=== PATIENT | female | born 1955 | race Caucasian/White ===

== ENCOUNTER 2018-08-16 13:50 | Emergency (ER) | payer SELFPAY ==
[2018-08-16 13:56] VITALS: BP 152/82; PULSE 94; TEMP 98.4; BMI 21.4
[2018-08-16] MEDS ORDERED: ALBUTEROL SO4 2.5/IPRATROPIUM 0.5 INH SOL 3 ML VIAL.NEB. NEB ONE ×2 (14:57→15:25)
[2018-08-16] MEDS ORDERED: DEXAMETHASONE LIQUID 0.5 MG/5 ML 240 ML BULK BOTTLE PO ONE (14:57)
--- NOTE | 2018-08-16 14:59 | PDOC ---
History of Present Illness - General Chief Complaint: Cold Symptoms Stated Complaint: SEVERE COUGH Time Seen by Provider: 08/16/18 14:02 History Source: Patient Exam Limitations: Language Barrier ([employer] used [id number]) Past History - Past Medical History Allergies/Adverse Reactions: Allergies Allergy/AdvReac Type Severity Reaction Status Date / Time No Known Allergies Allergy Verified 10/30/14 14:26 Home Medications: Ambulatory Orders Omeprazole [Prilosec (RX)] 40 mg PO DAILY 09/30/13 Triamterene/Hydrochlorothiazid [Dyazide 37.5-25 Capsule] 1 each PO DAILY Alprazolam 1 mg PO TID 10/14/14 Clonazepam [Klonopin] 0.5 mg PO HS 10/14/14 Enalapril Maleate [Vasotec -] 10 mg PO DAILY 10/14/14 Phenylephrine HCl/[place] Butter [Preparation H Suppository] 1 supp.rect [place] DAILY 10/14/14 Zolpidem Tartrate [Ambien] 5 mg PO HS 10/14/14 Ondansetron HCl [Zofran] 4 mg PO BID PRN #10 tablet 10/30/14 Albuterol 0.083% Nebulizer Yelitza [Ventolin 0.083% Nebulizer Soln -] 1 neb NEB Q6H #20 vial 08/16/18 Chlorpheniramine/Dextromethorp [Coricidin Hbp Cough & Cold Tab] 1 each PO TID # 15 tablet 08/16/18 predniSONE [Deltasone -] 40 mg PO DAILY #8 tablet 08/16/18 Asthma: Yes COPD: No Diabetes: Yes GI Disorders: Yes (GERD) Hypercholesterolemia: Yes Psychiatric Problems: Yes (anxiety) - Immunization History Immunization Up to Date: No - Suicide/Smoking/Psychosocial Hx Smoking History: Never smoked Have you smoked in the past 12 months: No Information on smoking cessation initiated: No Hx Alcohol Use: No Drug/Substance Use Hx: No Substance Use Type: None Hx Substance Use Treatment: No *Physical Exam - Vital Signs Last Vital Signs Temp Pulse Resp BP Pulse Ox 98.4 F 94 H 16 152/82 97 08/16/18 13:52 08/16/18 13:52 08/16/18 13:52 08/16/18 13:52 08/16/18 13:52 *DC/Admit/Observation/Transfer Diagnosis at time of Disposition: Bronchitis - Discharge Dispostion Disposition: HOME Condition at time of disposition: Stable Decision to Admit order: No - Prescriptions Prescriptions: Albuterol 0.083% Nebulizer Yelitza [Ventolin 0.083% Nebulizer Soln -] 1 neb NEB Q6H #20 vial Chlorpheniramine/Dextromethorp [Coricidin Hbp Cough & Cold Tab] 1 each PO TID # 15 tablet predniSONE [Deltasone -] 40 mg PO DAILY #8 tablet - Referrals Referrals: Crispin Fallon MD [Staff Physician] - - Patient Instructions Printed Discharge Instructions: DI for Viral Upper Respiratory Infection -- Adult Additional Instructions: You have bronchitis Please use the inhaler every 4 hours for the next week to help with your cough. Continue taking the prednisone daily for the next 4 days. You may take the the Cordicin for your cough Please follow up with your primary care doctor in 1 week if your symptoms are not improving. Return to the emergency department if you have fevers, chills, worsening cough, chest pain, worsening shortness of breath or if you have any changes in your symptoms. Tienes bronquitis Por favor, utilice el inhalador cada 4 horas para la prxima semana para ayudar con la tos. Contine tomando la prednisona diariamente ruchi los prximos 4 jacobs. Usted puede rony la Cordicin para marquis tos Por favor, felicia un seguimiento con marquis mdico de atencin primaria en 1 semana si arlen sntomas no mejoran. Regrese al Departamento de urgencias si tiene fiebre, escalofros, empeoramiento de la tos, dolor torcico, empeoramiento de la dificultad para respirar o si tiene algn cambio en los sntomas. Print Language: ICELANDIC - Post Discharge Activity
[2018-08-16] MEDS ORDERED: DEXAMETHASONE SOD PHOSPHATE 10 MG/1 ML VIAL ONE (15:25)
== END 2018-08-16 16:04 | disposition home or self-care (01) ==
LOC: JERFT 13:50
PROC: 3E0F7GC Introduction of Other Therapeutic Substance into Respiratory Tract, Via Natural or Artificial Opening (ICD-10-PCS; principal; 2018-08-16)
DX: J40 Bronchitis, not specified as acute or chronic (principal); J45.909 Unspecified asthma, uncomplicated; E11.9 Type 2 diabetes mellitus without complications; K21.9 Gastro-esophageal reflux disease without esophagitis; F41.9 Anxiety disorder, unspecified
CPT/HCPCS: 71046-TC-FY; 99281-25

== ENCOUNTER 2019-03-14 22:04 | Observation (INO) | payer OTHER ==
--- NOTE | 2019-03-14 22:26 | PDOC ---
Attending Attestation - Resident Resident Name: Riki Camilo - ED Attending Attestation I have performed the following: I have examined & evaluated the patient, The case was reviewed & discussed with the resident, I agree w/resident's findings & plan - HPI HPI: 03/15/19 01:28 Pt comes with hypotension and syncope today. Pt states that she was drinking shots of alcohol. N/V Pt had UTOX + in the ER. - Physicial Exam PE: 03/15/19 01:29 A+Ox3 Afebrile Heart and lungs clear Abd soft NT ND No flank pain No rashes. Pt smells of alcohol on breath - Medical Decision Making 03/15/19 01:11 Patient Name: VIKI RODRIGUEZ THIS IS A PRELIMINARY REPORT FROM [facility] DATE OF SERVICE: 2019-03-15 00:10:34 IMAGES: [id number] EXAM: CT HEAD WITHOUT CONTRAST No acute hemorrhage, mass or acute territorial infarct. Age-related involutional changes and minimal chronic small vessel ischemic changes. Mucoperiosteal thickening paranasal sinuses. Small fluid right maxillary sinus. Visualized mastoid air cells clear. 03/15/19 01:23 Patient Name: VIKI RODRIGUEZ THIS IS A PRELIMINARY REPORT FROM [facility] DATE OF SERVICE: 2019-03-15 00:17:09 IMAGES: [id number] EXAM: CT ABDOMEN AND PELVIS WITHOUT CONTRAST No nephrolithiasis, ureterolithiasis or obstructive uropathy. No bladder calculi. Unremarkable spleen, stomach, pancreas and gallbladder. No bowel obstruction or inflammation. Diverticulosis colon. No free fluid or free air. No evidence of appendicitis. Hepatomegaly and steatosis. Hysterectomy 03/15/19 01:59 +cocaine and +marijuana 03/15/19 03:05 Pt will be admitted for syncope. Heart Score/ECG Review - ECG Intrepretation Rhythm: Regular Rhythm - [place]: Normal - P and IA Delta Wave(s) Present: No WPW: No - QRS Poor R Wave Progression: No Q Wave Present: No - ST and T Early Repolarization: No Non Specific ST-T Wave changes: No Flattened T Waves: No - ECG Impressions Normal ECG: Yes Non-specific ST Elevation: No Ischemic Changes: No
[2019-03-14] MEDS ORDERED: ONDANSETRON 4 MG/2 ML VIAL IVPUSH ONE (22:35)
[2019-03-14] MEDS ORDERED: FAMOTIDINE 20 MG/50 ML IVPB 20 MG/50 ML MG IVPB ONE ×2 (22:35→23:18)
[2019-03-14] MEDS ORDERED: SODIUM CHLORIDE 0.9% 1000 ML INFUS.BAG IV ONE (22:35)
[2019-03-14] MEDS ORDERED: ONDANSETRON 4 MG/2 ML VIAL ONE (22:39)
--- NOTE | 2019-03-14 22:51 | PDOC ---
History of Present Illness - General Chief Complaint: Blood Pressure Problem Stated Complaint: VOMITING Time Seen by Provider: 03/14/19 22:25 Past History - Past Medical History Allergies/Adverse Reactions: Allergies Allergy/AdvReac Type Severity Reaction Status Date / Time loratadine [From Claritin] Allergy Verified 03/14/19 22:37 Home Medications: Ambulatory Orders Omeprazole [Prilosec (RX)] 40 mg PO DAILY 09/30/13 Triamterene/Hydrochlorothiazid [Dyazide 37.5-25 Capsule] 1 each PO DAILY Alprazolam 1 mg PO TID 10/14/14 Clonazepam [Klonopin] 0.5 mg PO HS 10/14/14 Enalapril Maleate [Vasotec -] 10 mg PO DAILY 10/14/14 Phenylephrine HCl/[place] Butter [Preparation H Suppository] 1 supp.rect IN DAILY 10/14/14 Zolpidem Tartrate [Ambien] 5 mg PO HS 10/14/14 Ondansetron HCl [Zofran] 4 mg PO BID PRN #10 tablet 10/30/14 Albuterol 0.083% Nebulizer Yelitza [Ventolin 0.083% Nebulizer Soln -] 1 [facility] Q6H #20 vial 08/16/18 Albuterol 0.083% Nebulizer Yelitza [Ventolin 0.083% Nebulizer Soln -] 1 [facility] Q6H #20 vial 08/16/18 Chlorpheniramine/Dextromethorp [Coricidin Hbp Cough & Cold Tab] 1 each PO TID # 15 tablet 08/16/18 Chlorpheniramine/Dextromethorp [Coricidin Hbp Cough & Cold Tab] 1 each PO TID # 15 tablet 08/16/18 predniSONE [Deltasone -] 40 mg PO DAILY #8 tablet 08/16/18 predniSONE [Deltasone -] 40 mg PO DAILY #8 tablet 08/16/18 Asthma: Yes COPD: No Diabetes: Yes GI Disorders: Yes (GERD) Hypercholesterolemia: Yes Psychiatric Problems: Yes (anxiety) - Immunization History Immunization Up to Date: No - Psycho Social/Smoking Cessation Hx Smoking History: Never smoked Have you smoked in the past 12 months: No Hx Alcohol Use: No Drug/Substance Use Hx: No Substance Use Type: None Hx Substance Use Treatment: No *Physical Exam - Vital Signs Last Vital Signs Temp Pulse Resp BP Pulse Ox 98.3 F 88 16 67/40 L 94 L 03/14/19 22:10 03/14/19 22:10 03/14/19 22:10 03/14/19 22:10 03/14/19 22:10 ED Treatment Course - LABORATORY CBC & Chemistry Diagram: 03/15/19 06:02 03/15/19 06:02 Medical Decision Making - Medical Decision Making 03/14/19 23:18 HPI: 63yo F hx DM, HTN, HLD, gastritis, hx alcohol abuse (sober x1yr until tonight), depression and anxiety (with hx psych hospitalizations) BIBA for witnessed syncopal episode with N/V without head injury or other injuries at 2129 tonight s/p multiple shots of Patron tequila and a beer. Pt states she was in [place] yesterday. Today was tired all day. Noticed glucose 260 this afternoon so took 1 extra "sugar pill". Otherwise takes her medications on and off, including clonazepam, losartan, 2 diabetes pills, and prozac. Pt was out with friends/ family this evening and appeared fine by the family until 2129 when pt sudddenly said didn't feel well and sat down and turned pale. Family tried to help her stand up and she became nauseated and had NBNB emesis x3 and fainted/ collapsed into their arms, +LOC x1min. Denies hx syncope or similar sx. Denies head injury or other injuries; family states caught her and laid her down. Called EMS. Per EMS, pt's BP was too faint to obtain. Pt endorses nausea and LLQ intermittent abdominal pain of unknown type without provoking or palliating factors since episode, similar to chronic LLQ pain worked up by Dr Herron which pt believes is due to gastritis. Hx abdominal surgeries removing uterus, ovaries , and part of bladder. Endorses hemorrhoids and chronic constipation, LBM today. Endorses urinary urgency xfew days. Endorse chronic mid-back pain, unchanged today. Denies fever, chills, numbness/tingling, weakness, shortness of breath, cough, chest pain, palpitations, leg swelling, calf tenderness, hx DVT/PE, recent surgery or travel, sick contacts, blood in stool, diarrhea, dysuria, hematuria, confusion, incontinence, seizure-like movements, tongue biting. Denies illicit drug use or smoking. Denies SI/HI/AVH or taking too many medications. PCP - [facility] ROS: Constitutional: Positive for fatigue. Negative for chills, fever, diaphoresis. HENT: Negative for sore throat, rhinorrhea, congestion. Eyes: Positive for blurry vision. Respiratory: Negative for shortness of breath, cough, and wheezing. Cardiovascular: Negative for chest pain, palpitations, and leg swelling. Gastrointestinal: Positive for abdominal pain, hemorrhoids, constipation, nausea , vomiting. Negative for blood in stool, diarrhea. Genitourinary: Positive for urgency. Negative for dysuria, flank pain, and hematuria. Musculoskeletal: Positive for chronic mid back pain. Negative for myalgias and neck pain. Skin: Negative for rash. Neurological: Positive for dizziness, syncope, and headache. Negative for vertigo, weakness, numbness. Psychiatric/Behavioral: Negative for behavioral problems and confusion. PE: Gen: Alert, NAD, uncomfortable and anxious-appearing, hypotensive, pale, actively vomiting HEENT: PERRL, EOMI, MMM, NCAT. No conjunctival pallor. Sclera are non-icteric. CV: Regular rate and rhythm. No murmurs, rubs, or gallops. PULM: No resp distress. CTAB, no wheezes, rales, or rhonchi. ABD: +mild LLQ TTP, soft, ND, no rebound tenderness or guarding, no CVA tenderness. BACK: No TTP of c/t/l-spine. No step-offs or deformities. MSK: No bony deformities. 2+ pulses in all extremities. NEURO: AAOx3. PERRL. CN 2-12 intact. 5/5 strength in all extremities. Sensation to light touch intact in all extremities. EXTREMITIES: No cyanosis. No clubbing. No edema. No calf tenderness. PSYCH: Normal mood and thought pattern. SKIN: Warm and dry. Pale. Normal capillary refill. No rashes. No jaundice. MDM: 63yo F hx DM, HTN, HLD, gastritis, hx alcohol abuse (sober x1yr until tonight), depression and anxiety (with hx psych hospitalizations) BIBA for witnessed syncopal episode with N/V without head injury or other injuries at 2130 tonight s/p multiple shots of Patron tequila and a beer. Upon presentation, VSS except for hypotensive 66/40, improving gradually with fluids, neurologically intact, no e/o trauma, +LLQ TTP. 176 POC glucose. Syncope most likely orthostatic or vasovagal 2/2 dehydration, vomiting, alcohol use, and anxiety. Also consider and eval for SAH, anemia, metabolic derangement , DKA/hypoglycemia, intoxication, infection (PNA, UTI, GI), cardiac pathology such as ACS/AR or arrhythmia, medication overdose. Abdominal pain most likely gastritis, but due to LLQ pain and mild TTP, also obtain labs and CTAP to eval for pancreatitis, cholelithiasis/cystitis, diverticulitis, colitis, or other GI pathology. No s/s of seizure. No e/o head injury or other injuries. -BP control: IVF -Zofran, Pepcid -CBC,CMP,Lipase,Cardiac profile,Mg,Lact,UA/UC/UDS,Salicylate,Acetaminophen, Alcohol -EKG -CTH -CTAP w/IV contrast -CXR -Dispo: pending w/u 03/14/19 23:52 Pt feeling better s/p 2L NS, normotensive, VSS, still mild TTP LLQ 03/14/19 23:57 Labs reviewed. Of note, leukocytosis, SHARRON, lact 3.4. EKG reviewed: NSR, 86bpm, normal axis, QTc 493ms, no e/o acute ischemia 03/15/19 01:30 CTH reviewed: no acute pathology CTAP reviewed: no acute pathology. Notable for diverticulosis, hepatic steatosis , and hepatomegaly. CXR reviewed: no acute pathology Of note, pt's family now informs us that pt was biting her tongue while passed out and family member had to shove knuckle into clenched teeth to open her mouth and stop her from biting tongue. Denies incontinence or seizure-like movements. Denies hx seizures. UDS positive for cocaine and MJ. Will admit tele/obs for syncope vs seizure. Microblog sent to admitting. 03/15/19 01:44 Signed out to admitting team. Discharge - Discharge Information Problems reviewed: Yes Clinical Impression/Diagnosis: Syncope, Abdominal pain Condition: Improved - Admission Yes - Follow up/Referral - Patient Discharge Instructions - Post Discharge Activity
[2019-03-14] MEDS ORDERED: SODIUM CHLORIDE 0.9% 500 ML INFUS.BAG IV ONE (22:53)
[2019-03-14 23:32] LABS: BASO % 0.5 % (0-2.0); EOS % 2.1 % (0-4.5); HEMATOCRIT 39.5 % (32.4-45.2); HEMOGLOBIN 13.1 GM/dL (10.7-15.3); LYMPH % 27.5 % (8-40); MCH 29.8 pg (25.7-33.7); MCHC 33.2 g/dl (32.0-36.0); MEAN CELL VOLUME 89.7 fl (80-96); MEAN PLT VOLUME 9.8 fl (7.5-11.1); MONO % 6.7 % (3.8-10.2); NEUT % 63.2 % (42.8-82.8); PLATELET COUNT 299 K/MM3 (134-434); RBC 4.41 M/mm3 (3.60-5.2); RDW 12.4 % (11.6-15.6); WHITE BLOOD COUNT 15.3 K/mm3 (4.0-10.0)
[2019-03-14 23:45] LABS: INR 1.07 (0.83-1.09); PROTHROMBIN TIME (PATIENT) 12.6 SEC (9.7-13.0)
[2019-03-14 23:57] LABS: ALBUMIN 3.4 g/dl (3.4-5.0); BILIRUBIN,TOTAL 0.2 mg/dL (0.2-1); BLOOD UREA NITROGEN 18.5 mg/dL (7-18); CALCIUM 8.8 mg/dL (8.5-10.1); CREATININE 1.7 mg/dL (0.55-1.3); POTASSIUM 3.9 mmol/L (3.5-5.1); TOT PROT 6.6 g/dl (6.4-8.2)
[2019-03-15 00:59] LABS: URINE APPEARANCE CLEAR; URINE BILIRUBIN NEGATIVE (NEGATIVE); URINE COLOR YELLOW; URINE GLUCOSE (UA) 3+ (NEGATIVE); URINE KETONE NEGATIVE (NEGATIVE); URINE LEUK ESTERASE NEGATIVE (NEGATIVE); URINE NITRITE NEGATIVE (NEGATIVE); URINE PROTEIN NEGATIVE (NEGATIVE); URINE UROBILINOGEN 0.2 mg/dL (0.2-1.0)
[2019-03-15 01:16] LABS: METHADONE, UR NEGATIVE ng/ml (CUTOFF=300); OPIATES, URI NEGATIVE ng/ml (CUTOFF=300); PHENCYCLIDINE,URINE NEGATIVE ng/ml (CUTOFF=25); URINE AMPHETAMINES NEGATIVE ng/ml (CUTOFF=500); URINE BARBITURATES NEGATIVE ng/ml (CUTOFF=200); URINE BENZODIAZEPINES NEGATIVE ng/ml (CUTOFF=200)
[2019-03-15 01:20] LABS: COCAINE, UR POSITIVE ng/ml (CUTOFF=300)
--- NOTE | 2019-03-15 01:47 | PN ---
Teaching Attending Note Name of Resident: Anoop Dumas ATTENDING PHYSICIAN STATEMENT I saw and evaluated the patient. I reviewed the resident's note and discussed the case with the resident. I agree with the resident's findings and plan as documented. SUBJECTIVE: 63-year-old woman with a history of diabetes, hypertension, dyslipidemia, gastritis, polysubstance abuse, depression, anxietymultiple psych hospitalizations for psych related illnesses, brought in by ambulance after witnessed syncope episode with nausea and vomiting. Syncope episode occurred about 2130 on 03/14/2019. Patient was reported to have taken multiple shots of liquor and has drank beer. She was found to be very hypotensive in the field with reported blood pressure of 66/40. There were no focal neurological deficits which were described. POC glucose was reported to be on the high side. It is noted that family member thought patient was biting her tongue during her syncope episode although this is not clear. No tonic-clonic like activity was described. OBJECTIVE: Last Vital Signs Temp Pulse Resp BP Pulse Ox 98.3 F 90 18 106/61 99 03/14/19 22:10 03/15/19 02:43 03/15/19 02:43 03/15/19 02:43 03/15/19 02:43 GENERAL: Well developed, well nourished. Awake and alert. No acute distress. No signs of trauma. HEENT: Normocephalic, atraumatic. PERRLA, EOMI. No conjunctival pallor. Sclera are non- icteric. Moist mucous membranes. Oropharynx is clear. NECK: Supple. Full ROM. No JVD. Carotid pulses 2+ and symmetric, without bruits. No thyromegaly. No lymphadenopathy. CARDIOVASCULAR: Regular rate and rhythm. No murmurs, rubs, or gallops. Distal pulses are 2+ and symmetric. PULMONARY: No evidence of respiratory distress. Lungs clear to auscultation bilaterally. No wheezing, rales or rhonchi. ABDOMINAL: Soft. Non-tender. Non-distended. No rebound or guarding. No organomegaly. Normoactive bowel sounds. MUSCULOSKELETAL Normal range of motion at all joints. No bony deformities or tenderness. No CVA tenderness. EXTREMITIES: No cyanosis. No clubbing. No edema. No calf tenderness. SKIN: Warm and dry. Normal capillary refill. No rashes. No jaundice. PSYCHIATRIC: Cooperative. Good eye contact. Appropriate mood and affect. Abnormal Lab Results 03/14/19 03/14/19 03/14/19 23:00 23:00 23:15 WBC 15.3 H Absolute Neuts (auto) 9.7 H BUN Creatinine Random Glucose Lactic Acid Urine Glucose (UA) Salicylates < 1.7 L Cocaine Screen U Marijuana (THC) Screen Alcohol, Quantitative 51.2 H 03/14/19 03/14/19 03/15/19 23:15 23:50 00:45 WBC Absolute Neuts (auto) BUN 18.5 H Creatinine 1.7 H Random Glucose 174 H Lactic Acid 3.4 H* Urine Glucose (UA) 3+ H Salicylates Cocaine Screen U Marijuana (THC) Screen Alcohol, Quantitative 03/15/19 00:45 WBC Absolute Neuts (auto) BUN Creatinine Random Glucose Lactic Acid Urine Glucose (UA) Salicylates Cocaine Screen Positive A* U Marijuana (THC) Screen Positive A* Alcohol, Quantitative Imaging studies reviewed CT ABDOMEN AND PELVIS WITHOUT CONTRAST No nephrolithiasis, ureterolithiasis or obstructive uropathy. No bladder calculi. Unremarkable spleen, stomach, pancreas and gallbladder. No bowel obstruction or inflammation. Diverticulosis colon. No free fluid or free air. No evidence of appendicitis. Hepatomegaly and steatosis. Hysterectomy ASSESSMENT AND PLAN: 63-year-old woman with polysubstance abuse including EtOH, THC, cocaine presented with syncope episode x1 on 03/14 in the evening along with hypotension. The suggestive that patient is dehydrated and syncope episode might have been orthostatic. Differential diagnosis includes vasovagal mechanism and/or underlying cardiac arrhythmias given her recent cocaine usage As well as possible seizure episode.High lactic acidosis and leukocytosis are unexplained but may be secondary to possible seizure disorder. Observation with telemetry Bedrest and fall precautions Check orthostatics IV fluid hydration Monitor vital signs closely Transthoracic echo Physical therapy evaluation #Polysubstance abuse Advised to stop drug and EtOH abuse CIWA protocol Ativan as needed if signs of withdrawal Thiamine and folate and multivitamin Considered detox referral upon discharge #Lactic acidosisuncertain etiology, possible seizure might explain IV fluid hydration and repeat lactic acid #Leukocytosis Monitor CBC off antibiotics If recurrent LOC or suspected seizure activity reconsult neuro and start AEDs DVT prophylaxis with heparin subcutaneously
[2019-03-15] MEDS ORDERED: SODIUM CHLORIDE 0.9% 500 ML INFUS.BAG IV ONE (01:52)
--- NOTE | 2019-03-15 02:00 | HP ---
HISTORY OF PRESENT ILLNESS: This is a 63 y/o F with a PMHx of substance abuse, DM, HTN, HLD, gastritis, hx polysubstance abuse (sober x1yr until tonight), depression and anxiety (with hx psych hospitalizations) BIBA for witnessed syncopal episode with N/V without head injury or other injuries at 9:30pm s/p multiple shots of tequila and beer. Pt endorses she was tired all day. She reports having a glucose of 260 this afternoon so she took one extra "sugar pill ". Otherwise takes her medications on and off, including: clonazepam, losartan, 2 diabetes pills, and prozac. Pt was out with friends/family this evening and appeared fine per the family until 9:30 when pt sudddenly said she didn't feel well and sat down and turned pale. Family helped her stay standing up and she became nauseated and had NBNB emesis x3 and fainted/collapsed into their arms, + LOC x1min. Denies hx of syncope or similar sx. Denies head injury or other injuries; family states they caught her and laid her down. Called EMS. Per EMS, pt's BP was too faint to obtain. Pt endorses nausea and LLQ intermittent abdominal pain of unknown type without provoking or palliating factors since episode, similar to chronic LLQ pain worked up by Dr Herron which pt believes is due to gastritis. Denies cp, sob, bowel/bladder complaints. ER course was notable for: (1) CT abd/pelvis: No acute pathology. Diverticulosis, fatty live with hepatomegaly (2) UA-3+ glucose, UA tox+ : cocaine, marijuana, ETOH (3) 3 one liter boluses of NS. L.A. 3.4 Recent Travel: denies Social History: Smoking: denies Alcohol:denies Drugs: denies Allergies loratadine [From Claritin] Allergy (Verified 03/14/19 22:37) HOME MEDICATIONS: Home Medications Medication Instructions Recorded Omeprazole [Prilosec (RX)] 40 mg PO DAILY 09/30/13 Triamterene/Hydrochlorothiazid 1 each PO DAILY 09/30/13 [Dyazide 37.5-25 Capsule] Alprazolam 1 mg PO TID 10/14/14 Clonazepam [Klonopin] 0.5 mg PO HS 10/14/14 Enalapril Maleate [Vasotec -] 10 mg PO DAILY 10/14/14 Phenylephrine HCl/[place] Butter 1 supp.rect [place] DAILY 10/14/14 [Preparation H Suppository] Zolpidem Tartrate [Ambien] 5 mg PO HS 10/14/14 Ondansetron HCl [Zofran] 4 mg PO BID PRN #10 tablet 10/30/14 Albuterol 0.083% Nebulizer Yelitza 1 neb NEB Q6H #20 vial 08/16/18 [Ventolin 0.083% Nebulizer Soln -] Albuterol 0.083% Nebulizer Yelitza 1 neb NEB Q6H #20 vial 08/16/18 [Ventolin 0.083% Nebulizer Soln -] Chlorpheniramine/Dextromethorp 1 each PO TID #15 tablet 08/16/18 [Coricidin Hbp Cough & Cold Tab] Chlorpheniramine/Dextromethorp 1 each PO TID #15 tablet 08/16/18 [Coricidin Hbp Cough & Cold Tab] predniSONE [Deltasone -] 40 mg PO DAILY #8 tablet 08/16/18 predniSONE [Deltasone -] 40 mg PO DAILY #8 tablet 08/16/18 REVIEW OF SYSTEMS Negative except in HPI PHYSICAL EXAMINATION Vital Signs - 24 hr 03/14/19 03/14/19 03/14/19 22:10 22:30 23:00 Temperature 98.3 F Pulse Rate 88 Pulse Rate [ 83 86 Apical] Respiratory 16 Rate Blood Pressure 67/40 L Blood Pressure 67/42 L 83/46 L [Right Arm] O2 Sat by Pulse 94 L Oximetry (%) 03/15/19 03/15/19 03/15/19 00:00 00:15 00:30 Temperature Pulse Rate Pulse Rate [ 86 87 86 Apical] Respiratory Rate Blood Pressure Blood Pressure 96/58 L 103/58 L 114/73 [Right Arm] O2 Sat by Pulse Oximetry (%) 03/15/19 00:45 Temperature Pulse Rate Pulse Rate [ 86 Apical] Respiratory Rate Blood Pressure Blood Pressure 110/65 [Right Arm] O2 Sat by Pulse Oximetry (%) GENERAL: Awake, alert, and fully oriented, in no acute distress. HEAD: Normal with no signs of trauma. Eyes- conjunctival injection LUNGS: Breath sounds equal, clear to auscultation bilaterally. No wheezes, and no crackles. HEART: Regular rate and rhythm, normal S1 and S2 without murmur, rub or gallop. ABDOMEN: Soft, ttp in LUQ, nonradiating, not distended, no guarding, no rebound , no masses. Hepatomegaly present. MUSCULOSKELETAL: Normal range of motion at all joints. LOWER EXTREMITIES: 2+ pulses, warm, well-perfused. No calf tenderness. No peripheral edema. NEUROLOGICAL: Cranial nerves II-XII intact. Normal speech. Normal gait. PSYCHIATRIC: Cooperative. Somnolent SKIN: Warm, dry, no rashes or lesions noted. Laboratory Results - last 24 hr 03/14/19 03/14/19 03/14/19 23:00 23:00 23:11 WBC RBC Hgb Hct MCV MCH MCHC RDW Plt Count MPV Absolute Neuts (auto) Neutrophils % Lymphocytes % Monocytes % Eosinophils % Basophils % Nucleated RBC % PT with INR INR Sodium Potassium Chloride Carbon Dioxide Anion Gap BUN Creatinine Est GFR (CKD-EPI)AfAm Est GFR (CKD-EPI)NonAf POC Glucometer 176 Random Glucose Lactic Acid Calcium Magnesium Total Bilirubin AST ALT Alkaline Phosphatase Creatine Kinase 89 Troponin I 0.03 Total Protein Albumin Lipase Urine Color Urine Appearance Urine pH Ur Specific [place] Urine Protein Urine Glucose (UA) Urine Ketones Urine Blood Urine Nitrite Urine Bilirubin Urine Urobilinogen Ur Leukocyte Esterase Salicylates < 1.7 L Opiates Screen Methadone Screen Acetaminophen <2.0 Barbiturate Screen Phencyclidine Screen Ur Amphetamines Screen MDMA (Ecstasy) Screen Benzodiazepines Screen Cocaine Screen U Marijuana (THC) Screen Alcohol, Quantitative 51.2 H 03/14/19 03/14/19 03/14/19 23:15 23:15 23:15 WBC 15.3 H RBC 4.41 Hgb 13.1 Hct 39.5 MCV 89.7 MCH 29.8 MCHC 33.2 RDW 12.4 Plt Count 299 MPV 9.8 Absolute Neuts (auto) 9.7 H Neutrophils % 63.2 Lymphocytes % 27.5 Monocytes % 6.7 Eosinophils % 2.1 Basophils % 0.5 Nucleated RBC % 0 PT with INR 12.60 INR 1.07 Sodium 140 Potassium 3.9 Chloride 102 Carbon Dioxide 29 Anion Gap 9 BUN 18.5 H Creatinine 1.7 H Est GFR (CKD-EPI)AfAm 36.05 Est GFR (CKD-EPI)NonAf 31.10 POC Glucometer Random Glucose 174 H Lactic Acid Calcium 8.8 Magnesium 2.0 Total Bilirubin 0.2 AST 17 ALT 25 Alkaline Phosphatase 82 Creatine Kinase Troponin I Total Protein 6.6 Albumin 3.4 Lipase 112 Urine Color Urine Appearance Urine pH Ur Specific [place] Urine Protein Urine Glucose (UA) Urine Ketones Urine Blood Urine Nitrite Urine Bilirubin Urine Urobilinogen Ur Leukocyte Esterase Salicylates Opiates Screen Methadone Screen Acetaminophen Barbiturate Screen Phencyclidine Screen Ur Amphetamines Screen MDMA (Ecstasy) Screen Benzodiazepines Screen Cocaine Screen U Marijuana (THC) Screen Alcohol, Quantitative 03/14/19 03/15/19 03/15/19 23:50 00:45 00:45 WBC RBC Hgb Hct MCV MCH MCHC RDW Plt Count MPV Absolute Neuts (auto) Neutrophils % Lymphocytes % Monocytes % Eosinophils % Basophils % Nucleated RBC % PT with INR INR Sodium Potassium Chloride Carbon Dioxide Anion Gap BUN Creatinine Est GFR (CKD-EPI)AfAm Est GFR (CKD-EPI)NonAf POC Glucometer Random Glucose Lactic Acid 3.4 H* Calcium Magnesium Total Bilirubin AST ALT Alkaline Phosphatase Creatine Kinase Troponin I Total Protein Albumin Lipase Urine Color Yellow Urine Appearance Clear Urine pH 6.0 Ur Specific [place] 1.021 Urine Protein Negative Urine Glucose (UA) 3+ H Urine Ketones Negative Urine Blood Negative Urine Nitrite Negative Urine Bilirubin Negative Urine Urobilinogen 0.2 Ur Leukocyte Esterase Negative Salicylates Opiates Screen Negative Methadone Screen Negative Acetaminophen Barbiturate Screen Negative Phencyclidine Screen Negative Ur Amphetamines Screen Negative MDMA (Ecstasy) Screen Negative Benzodiazepines Screen Negative Cocaine Screen Positive A* U Marijuana (THC) Screen Positive A* Alcohol, Quantitative ASSESSMENT/PLAN: This is a 63 y/o F with a PMHx of substance abuse, DM, HTN, HLD, gastritis, hx polysubstance abuse (sober x1yr until tonight), depression and anxiety (with hx psych hospitalizations) BIBA for witnessed syncopal episode with N/V without head injury or other injuries at 9:30pm s/p multiple shots of tequila and beer. #Witnessed syncopal episode - likely due to acute ETOH intoxication as well as polysubstance abuse. - CT head negative - echo - Observation with telemetry - Bedrest and fall precautions/seizure precautions - orthostatics not reliable given pt already received fluids. - IV NS hydration - monitor vital signs closely - Physical therapy evaluation #Polysubstance abuse - Advised to stop drug and EtOH abuse - [facility] protocol - Ativan as needed if signs of withdrawal present - Thiamine and folate and multivitamin - Consider detox referral upon discharge #SHARRON likely 2/2 pre-renal hypovolemia - vomiting for multiple days w/o good PO intake - order renal sono to be certain and r/o obstructive nephropathies/uropathies -urine lytes, urine osms, urine urea, urine creatinine - calculate FeNa. #Abd pain - CT abd pelvis- No nephrolithiasis, ureterolithiasis or obstructive uropathy. No bladder calculi. Unremarkable spleen, stomach, pancreas and gallbladder. No bowel obstruction or inflammation. Diverticulosis colon. No free fluid or free air. No evidence of appendicitis. Hepatomegaly and steatosis. Hysterectomy - wbc: 15.3; if recurrent LOC or suspected seizure activity re-consult neuro and start AEDs - no sign of infection at this time - could be 2/2 dehydration - lactate 3.4 likely 2/2 seizure or dehydration from vomiting and poor H2O intake - IV hydration and repeat lactate down to 1.5 - afebrile, will rosado culture if pt develops a fever. - monitor off abx for now and assess rpt cbc and lactate - CXR no infiltrates present #DM - A1c - Insulin sliding scale TIDAC #HTN - hold meds given hypotension at this time #HLD - continue home meds Heparin 5K TID Visit type - Emergency Visit Emergency Visit: Yes ED Registration Date: 03/15/19 Care time: The patient presented to the Emergency Department on the above date and was hospitalized for further evaluation of their emergent condition. - New Patient This patient is new to me today: Yes Date on this admission: 03/17/19 - Critical Care Critical Care patient: No ATTENDING PHYSICIAN STATEMENT I saw and evaluated the patient. I reviewed the resident's note and discussed the case with the resident. I agree with the resident's findings and plan as documented. SUBJECTIVE: OBJECTIVE: ASSESSMENT AND PLAN:
[2019-03-15] MEDS: SODIUM CHLORIDE 1,000 ML IV SCH ×2 (03:39→21:21)
[2019-03-15] MEDS ORDERED: HEPARIN NA (PORCINE) 5,000 UNITS/ML 1ML VIAL ONE (06:34)
[2019-03-15 06:35] LABS: BASO % 0.5 % (0-2.0); EOS % 1.5 % (0-4.5); HEMATOCRIT 35.6 % (32.4-45.2); LYMPH % 23.1 % (8-40); MCH 29.5 pg (25.7-33.7); MCHC 33.9 g/dl (32.0-36.0); MEAN CELL VOLUME 87.3 fl (80-96); MEAN PLT VOLUME 9.5 fl (7.5-11.1); MONO % 6.2 % (3.8-10.2); NEUT % 68.7 % (42.8-82.8); PLATELET COUNT 257 K/MM3 (134-434); RBC 4.07 M/mm3 (3.60-5.2); RDW 12.6 % (11.6-15.6); WHITE BLOOD COUNT 15.4 K/mm3 (4.0-10.0)
[2019-03-15] MEDS: HEPARIN NA (PORCINE) 5,000 UNITS/ML 1ML VIAL SQ SCH ×3 (06:46→21:21)
[2019-03-15 07:07] LABS: ALBUMIN 3.1 g/dl (3.4-5.0); BILIRUBIN,TOTAL 0.2 mg/dL (0.2-1); BLOOD UREA NITROGEN 17.7 mg/dL (7-18); CALCIUM 7.9 mg/dL (8.5-10.1); CREATININE 0.8 mg/dL (0.55-1.3); PHOSPHOROUS 3.9 mg/dL (2.5-4.9); POTASSIUM 3.9 mmol/L (3.5-5.1); TOT PROT 5.9 g/dl (6.4-8.2)
[2019-03-15] MEDS: INSULIN SLIDING SCALE (NOVOLOG) 1 VIAL SQ SCH ×3 (07:19→17:29)
[2019-03-15] MEDS ORDERED: THIAMINE HCL 100 MG TABLET (FP) PO SCH (10:00)
[2019-03-15] MEDS ORDERED: ENOXAPARIN NA (PORCINE) 40 MG/0.4 ML DISP.SYRIN SQ SCH (10:00)
[2019-03-15] MEDS: MULTIVITAMINS (DAILY MVI) TABLET (FP) PO SCH (10:50)
[2019-03-15] MEDS: FOLIC ACID 1 MG TABLET (FP) PO SCH (10:50)
[2019-03-15] MEDS ORDERED: THIAMINE HCL 200 MG/2 ML VIAL IVPB ONE (11:00)
--- NOTE | 2019-03-15 14:13 | EKG ---
Test Reason : Blood Pressure : / mmHG Vent. Rate : 086 BPM Atrial Rate : 086 BPM P-R Int : 152 ms QRS Dur : 064 ms QT Int : 412 ms P-R-T Axes : 055 005 065 degrees QTc Int : 493 ms NORMAL SINUS RHYTHM LOW VOLTAGE QRS INFERIOR INFARCT , AGE UNDETERMINED ABNORMAL ECG WHEN COMPARED WITH ECG OF 30-SEP-2013 07:36, PREMATURE VENTRICULAR COMPLEXES ARE NO LONGER PRESENT Confirmed by VICTOR HUGO MOLINA, ALEXANDRU ([id number]) on 03/15/2019 2:13:07 PM Referred By: Confirmed By:ALEXANDRU GAY MD
--- NOTE | 2019-03-15 15:47 | PN ---
Physical Exam: SUBJECTIVE: Patient seen and examined 63 y/o F, pmh of DM, HLD, HTN, polysubstance abuse (sober x1yr until tonight), gastritis, anxiety disorder, and depression is BIBA for a witnessed LOC without head trauma is admitted for syncope. Currently, pt is doing well, appears to have improved significantly. C/o of no further issues. Does not recollect how she ended up in the hospital. No overnight events reported. Denies f/c/n/v/d/sob /chest pain. OBJECTIVE: Vital Signs Period Temp Pulse Resp BP Sys/Klein Pulse Ox Last 24 Hr 97.6 F-98.3 F 78-90 16-18 67-128/40-78 94-99 GENERAL: The patient is awake, alert, and fully oriented, in no acute distress. HEAD: Normal with no signs of trauma. EYES: PERRL, extraocular movements intact ENT: oropharynx clear without exudates, dry mucous NECK: full range of motion, supple. LUNGS: Breath sounds equal, clear to auscultation bilaterally, no wheezes, no crackles, HEART: Regular rate and rhythm, S1, S2 without murmur, rub or gallop. ABDOMEN: Soft, nontender, nondistended, normoactive bowel sounds, no guarding, EXTREMITIES: 2+ pulses, warm, well-perfused, no edema. NEUROLOGICAL: Cranial nerves II through XII grossly intact. PSYCH: Normal mood, SKIN: Warm, dry, normal turgor, Laboratory Results - last 24 hr CBC,CMP WBC 15.4 K/mm3 (4.0-10.0) H 03/15/19 06:02 RBC 4.07 M/mm3 (3.60-5.2) 03/15/19 06:02 Hgb 12.0 GM/dL (10.7-15.3) 03/15/19 06:02 Hct 35.6 % (32.4-45.2) 03/15/19 06:02 MCV 87.3 fl (80-96) 03/15/19 06:02 MCH 29.5 pg (25.7-33.7) 03/15/19 06:02 MCHC 33.9 g/dl (32.0-36.0) 03/15/19 06:02 RDW 12.6 % (11.6-15.6) 03/15/19 06:02 Plt Count 257 K/MM3 (134-434) 03/15/19 06:02 MPV 9.5 fl (7.5-11.1) 03/15/19 06:02 Absolute Neuts (auto) 10.6 K/mm3 (1.5-8.0) H 03/15/19 06:02 Neutrophils % 68.7 % (42.8-82.8) 03/15/19 06:02 Lymphocytes % 23.1 % (8-40) 03/15/19 06:02 Monocytes % 6.2 % (3.8-10.2) 03/15/19 06:02 Eosinophils % 1.5 % (0-4.5) 03/15/19 06:02 Basophils % 0.5 % (0-2.0) 03/15/19 06:02 Nucleated RBC % 0 % (0-0) 03/15/19 06:02 Sodium 143 mmol/L (136-145) 03/15/19 06:02 Potassium 3.9 mmol/L (3.5-5.1) 03/15/19 06:02 Chloride 110 mmol/L (98-107) H 03/15/19 06:02 Carbon Dioxide 29 mmol/L (21-32) 03/15/19 06:02 Anion Gap 5 MMOL/L (8-16) L 03/15/19 06:02 BUN 17.7 mg/dL (7-18) 03/15/19 06:02 Creatinine 0.8 mg/dL (0.55-1.3) 03/15/19 06:02 Est GFR (CKD-EPI)AfAm 89.67 03/15/19 06:02 Est GFR (CKD-EPI)NonAf 77.37 03/15/19 06:02 POC Glucometer 102 UNITS (80-120) 03/15/19 13:11 Random Glucose 124 mg/dL (74-106) H 03/15/19 06:02 Serum Osmolality 299 mosm/kg (278-305) 03/15/19 06:02 Lactic Acid 1.5 mmol/L (0.4-2.0) 03/15/19 03:30 Calcium 7.9 mg/dL (8.5-10.1) L 03/15/19 06:02 Phosphorus 3.9 mg/dL (2.5-4.9) 03/15/19 06:02 Magnesium 2.0 mg/dL (1.8-2.4) 03/15/19 06:02 Total Bilirubin 0.2 mg/dL (0.2-1) 03/15/19 06:02 AST 12 U/L (15-37) L 03/15/19 06:02 ALT 21 U/L (13-61) 03/15/19 06:02 Alkaline Phosphatase 72 U/L (45-117) 03/15/19 06:02 Creatine Kinase 89 U/L (26-192) 03/14/19 23:00 Troponin I 0.03 ng/ml (0.00-0.05) 03/14/19 23:00 Total Protein 5.9 g/dl (6.4-8.2) L 03/15/19 06:02 Albumin 3.1 g/dl (3.4-5.0) L 03/15/19 06:02 Lipase 112 U/L (73-393) 03/14/19 23:15 TSH 0.26 uIU/ml (0.358-3.74) L 03/15/19 06:02 Active Medications Current Medications Folic Acid (Folic Acid -) 1 mg PO DAILY [facility] Last Admin: 03/15/19 10:50 Dose: 1 mg Heparin Sodium (Porcine) (Heparin -) 5,000 unit SQ TID [facility] Last Admin: 03/15/19 06:46 Dose: 5,000 unit Sodium Chloride (Normal Saline -) 1,000 mls @ 100 mls/hr IV ASDIR [facility] Last Admin: 03/15/19 03:39 Dose: 100 mls/hr Insulin Aspart (Novolog Vial Sliding Scale -) 1 vial SQ TIDAC [facility]; Protocol Last Admin: 03/15/19 13:17 Dose: Not Given Multivitamins/Minerals/Vitamin C (Tab-A-Vit -) 1 tab PO DAILY [facility] Last Admin: 03/15/19 10:50 Dose: 1 tab Thiamine HCl (Vitamin B1 -) 100 mg PO DAILY [facility] Home Medications Medication Instructions Recorded Omeprazole [Prilosec (RX)] 40 mg PO DAILY 09/30/13 Clonazepam [Klonopin] 0.5 mg PO HS 06/30/15 Enalapril Maleate [Vasotec -] 10 mg PO DAILY 10/14/14 Zolpidem Tartrate [Ambien] 5 mg PO HS 10/14/14 Albuterol 0.083% Nebulizer Yelitza 1 neb NEB Q6H #20 vial 08/16/18 [Ventolin 0.083% Nebulizer Soln -] Fenofibrate 150 mg PO DAILY 03/15/19 Glipizide Xl [Glucotrol Xl -] 10 mg PO DAILY 03/15/19 ASSESSMENT/PLAN: 63 y/o F, pmh of DM, HLD, HTN, polysubstance abuse (sober x1yr until tonight), gastritis, anxiety disorder, and depression is BIBA for a witnessed LOC without head trauma is admitted for syncope. #Syncope likely 2/2 to alcohol intoxication related vasovagal vs drug overdose related arrhythmia CT head negative Utox positive for alcohol, THC and cocaine CXR neg, EKG normal, Renal U/S normal Observation for now Bedrest and fall precautions/seizure precautions orthostatics IV NS at 100 monitor vital signs closely Physical therapy evaluation #Elevated WBC WBC 15.4 no signs of infxn could be reactive Cx if fever develops r/p cbc in am monitor for now #Substance abuse CIWA protocol Ativan if withdrawal present Thiamine and folate Consider detox on d/c #Abd pain CT a/p- No nephrolithiasis, ureterolithiasis or obstructive uropathy. No bladder calculi. Unremarkable spleen, stomach, pancreas and gallbladder. No bowel obstruction or inflammation. Diverticulosis colon. No free fluid or free air. No evidence of appendicitis. Hepatomegaly and steatosis. Hysterectomy #DM ISS #HTN Hold meds for now #HLD continue home meds #DVTppx Heparin 5K TID FEN IVF at 100 Diabetic/sodium diet Dispo: monitor for fever, monitor for withdrawals, observation for now Visit type - Emergency Visit Emergency Visit: Yes ED Registration Date: 03/15/19 Care time: The patient presented to the Emergency Department on the above date and was hospitalized for further evaluation of their emergent condition. - New Patient This patient is new to me today: Yes Date on this admission: 03/15/19 - Critical Care Critical Care patient: No - Discharge Referral Referred to [facility] No ATTENDING PHYSICIAN STATEMENT I saw and evaluated the patient. I reviewed the resident's note and discussed the case with the resident. I agree with the resident's findings and plan as documented. SUBJECTIVE: OBJECTIVE: ASSESSMENT AND PLAN:
--- NOTE | 2019-03-15 17:35 | PN ---
Teaching Attending Note Name of Resident: Erika Goodwin ATTENDING PHYSICIAN STATEMENT I saw and evaluated the patient. I reviewed the resident's note and discussed the case with the resident. I agree with the resident's findings and plan as documented. SUBJECTIVE: No fever or chills. feels better . patient stated that she always had LLQ pain OBJECTIVE: NAD,a wake, alert, cooperative..No systagmus Dry MM. no thrush. CV; RRR, no MRG Lungs: CTAB Abd: soft, ND, NL BS, LLQ tenderness, no rebound tenderness or guarding. Ext : No edema or erythema ,. no tremor Neuro : EOMI, round equal pupils, reactive to light. no facial droop. strength 5 /5 in upper and lower extremities proximally and distally. ASSESSMENT AND PLAN: 63 y/o lady with h/o PSA, HLp, HTN, depression, anxiety and multiple psyh admissions, gastritis and DM and other medical problems who presented with syncope 1- Syncope: likely due to hypotension. evidence of volume depletion at presentation ( hypotension , SHARRON, dry skin and MM, elevated lactic ). ? vasovagal is possible . doubt any seizure activity or other causes like arrhythmias - correct volume with IVF - tele - CT of head reviewed 2- SHARRON : due to prerenal azotemia in settign of volume depletion . No hydro or obstruction - IVF Cr improved - hold lisinopril 3- Leukocytosis : Unclear etiology . no source identified ( clean UA, clear Cxray , no skin lesions) . coulf be reactive - will not treat with no source 4- PSA: Marijuana and cocaine and ETOH - monitor for any withdrawal sx cont thiamine and folate gave a dose of IV thiamine no signs of Wernicke's 5- Abnormal TFTs. low TSH and NL Ft4 indicate subclinical hyperthyroidism. No treatment is required at this point due to absence of cardiac conditions or other sx. but definitely need to repeat TFTs as outpt in few weeks. ALso pattern could be due to sick euthyroid syndrome. 6- DM : hold glipizide and start SSI DVT Px : sq heparin
[2019-03-15] MEDS: ALBUTEROL SO4 0.083% IH SOL 2.5 MG/3 ML VIAL.NEB. NEB SCH (20:30)
[2019-03-15] MEDS ORDERED: clonazePAM 0.5 MG TABLET PO SCH (22:00)
[2019-03-15 22:12] VITALS: BMI 29.5
[2019-03-16] MEDS ORDERED: INSULIN (NOVOLOG) ASPART 100 UNITS/ML 10ML VIAL ONE (05:58)
[2019-03-16] MEDS: INSULIN SLIDING SCALE (NOVOLOG) 1 VIAL SQ SCH ×2 (06:05→12:27)
[2019-03-16] MEDS: HEPARIN NA (PORCINE) 5,000 UNITS/ML 1ML VIAL SQ SCH (06:05)
[2019-03-16 07:55] LABS: HEMATOCRIT 40.2 % (32.4-45.2); HEMOGLOBIN 13.5 GM/dL (10.7-15.3); MCH 29.6 pg (25.7-33.7); MCHC 33.6 g/dl (32.0-36.0); MEAN CELL VOLUME 88.1 fl (80-96); MEAN PLT VOLUME 9.8 fl (7.5-11.1); PLATELET COUNT 287 K/MM3 (134-434); RBC 4.57 M/mm3 (3.60-5.2); RDW 12.5 % (11.6-15.6); WHITE BLOOD COUNT 11.1 K/mm3 (4.0-10.0)
[2019-03-16 08:02] LABS: BLOOD UREA NITROGEN 14.1 mg/dL (7-18); CREATININE 0.7 mg/dL (0.55-1.3); POTASSIUM 3.7 mmol/L (3.5-5.1)
[2019-03-16] MEDS: ALBUTEROL SO4 0.083% IH SOL 2.5 MG/3 ML VIAL.NEB. NEB SCH ×2 (08:22→11:23)
[2019-03-16] MEDS: MULTIVITAMINS (DAILY MVI) TABLET (FP) PO SCH (09:39)
[2019-03-16] MEDS: FOLIC ACID 1 MG TABLET (FP) PO SCH (09:39)
[2019-03-16] MEDS ORDERED: THIAMINE HCL 100 MG TABLET (FP) PO SCH (10:00)
[2019-03-16 10:12] VITALS: BP 142/70; PULSE 109; TEMP 98.5
[2019-03-16] MEDS ORDERED: ENALAPRIL MALEATE 10 MG TABLET (FP) PO SCH (12:15)
--- NOTE | 2019-03-16 12:24 | PN ---
Teaching Attending Note Name of Resident: Erika Goodwin ATTENDING PHYSICIAN STATEMENT I saw and evaluated the patient. I reviewed the resident's note and discussed the case with the resident. I agree with the resident's findings and plan as documented. SUBJECTIVE: Rn Visiting phone Basilio [phone] ws used No fever or chills, denies CP , madhu SOB or palpitations. feels tired . she has chronic LLQ pain and she sees GI fro it. she was told she had constipation OBJECTIVE: NAD, awake, alert, cooperative. No systagmus Dry MM. no thrush. CV; RRR, no MRG Lungs: CTAB Abd: soft, ND, NL BS, LLQ tenderness, no rebound tenderness or guarding. Ext: No edema or erythema. no tremor ASSESSMENT AND PLAN: 63 y/o lady with h/o PSA, HLP, HTN, depression, anxiety and multiple psyh admissions, gastritis and DM and other medical problems who presented with syncope 1- Syncope: likely due to hypotension from volume depletion. volume was corrected and BP has improved. will resume her enalapril elevated trop plateued. was probably de to hypotension . 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 ) . she was recommended toget a stress and an echo if she had not already. also she was offered ASA , she declined as she is allergic to it ( electricity in her body ) 2- SHARRON : due to prerenal azotemia in setting of volume depletion. 3- Leukocytosis : Unclear etiology . No signs of infection . improved 4- PSA: Marijuana and cocaine and ETOH she denies cocaine and chronic ETOH use. she declines rehab. she admits to trying marijuana once. 5- Abnormal TFTs. repeat TFTs as out pt 6- DM : resume glipizide at [facility] home
--- NOTE | 2019-03-16 12:50 | DS ---
Physical Exam: SUBJECTIVE: Patient seen and examined Today doing well, appears to have improved significantly. C/o of no further issues except for her chronic mild abdominal pain. No acute overnight events reported. Denies f/c/n/v/d/sob/chest pain. OBJECTIVE: Vital Signs Period Temp Pulse Resp BP Sys/Klien Pulse Ox Last 24 Hr 97.6 F-98.8 F 78-109 18-18 133-142/70-81 97-98 PHYSICAL EXAM GENERAL: The patient is awake, alert, and fully oriented, in no acute distress. HEAD: Normal with no signs of trauma. EYES: PERRL, extraocular movements intact ENT: oropharynx clear without exudates, dry mucous NECK: full range of motion, supple. LUNGS: Breath sounds equal, clear to auscultation bilaterally, no wheezes, no crackles, HEART: Regular rate and rhythm, S1, S2 without murmur, rub or gallop. ABDOMEN: Soft, mild tenderness on deep palpation, nondistended, normoactive bowel sounds, no guarding, EXTREMITIES: 2+ pulses, warm, well-perfused, no edema. NEUROLOGICAL: Cranial nerves II through XII grossly intact. PSYCH: Normal mood, SKIN: Warm, dry, normal turgor, LABS Laboratory Results - last 24 hr CBC,CMP WBC 11.1 K/mm3 (4.0-10.0) H 03/16/19 06:00 RBC 4.57 M/mm3 (3.60-5.2) 03/16/19 06:00 Hgb 13.5 GM/dL (10.7-15.3) 03/16/19 06:00 Hct 40.2 % (32.4-45.2) 03/16/19 06:00 MCV 88.1 fl (80-96) 03/16/19 06:00 MCH 29.6 pg (25.7-33.7) 03/16/19 06:00 MCHC 33.6 g/dl (32.0-36.0) 03/16/19 06:00 RDW 12.5 % (11.6-15.6) 03/16/19 06:00 Plt Count 287 K/MM3 (134-434) 03/16/19 06:00 MPV 9.8 fl (7.5-11.1) 03/16/19 06:00 Absolute Neuts (auto) 10.6 K/mm3 (1.5-8.0) H 03/15/19 06:02 Neutrophils % 68.7 % (42.8-82.8) 03/15/19 06:02 Lymphocytes % 23.1 % (8-40) 03/15/19 06:02 Monocytes % 6.2 % (3.8-10.2) 03/15/19 06:02 Eosinophils % 1.5 % (0-4.5) 03/15/19 06:02 Basophils % 0.5 % (0-2.0) 03/15/19 06:02 Nucleated RBC % 0 % (0-0) 03/15/19 06:02 Sodium 141 mmol/L (136-145) 03/16/19 06:00 Potassium 3.7 mmol/L (3.5-5.1) 03/16/19 06:00 Chloride 105 mmol/L (98-107) 03/16/19 06:00 Carbon Dioxide 29 mmol/L (21-32) 03/16/19 06:00 Anion Gap 7 MMOL/L (8-16) L 03/16/19 06:00 BUN 14.1 mg/dL (7-18) 03/16/19 06:00 Creatinine 0.7 mg/dL (0.55-1.3) 03/16/19 06:00 Est GFR (CKD-EPI)AfAm 105.38 03/16/19 06:00 Est GFR (CKD-EPI)NonAf 90.92 03/16/19 06:00 POC Glucometer 137 UNITS (80-120) 03/16/19 11:30 Random Glucose 124 mg/dL (74-106) H 03/16/19 06:00 Serum Osmolality 299 mosm/kg (278-305) 03/15/19 06:02 Lactic Acid 1.5 mmol/L (0.4-2.0) 03/15/19 03:30 Calcium 9.0 mg/dL (8.5-10.1) 03/16/19 06:00 Phosphorus 3.9 mg/dL (2.5-4.9) 03/15/19 06:02 Magnesium 2.0 mg/dL (1.8-2.4) 03/15/19 06:02 Total Bilirubin 0.2 mg/dL (0.2-1) 03/15/19 06:02 AST 12 U/L (15-37) L 03/15/19 06:02 ALT 21 U/L (13-61) 03/15/19 06:02 Alkaline Phosphatase 72 U/L (45-117) 03/15/19 06:02 Creatine Kinase 109 U/L (26-192) 03/15/19 21:40 Troponin I 0.08 ng/ml (0.00-0.05) H 03/16/19 06:00 Total Protein 5.9 g/dl (6.4-8.2) L 03/15/19 06:02 Albumin 3.1 g/dl (3.4-5.0) L 03/15/19 06:02 Lipase 112 U/L (73-393) 03/14/19 23:15 TSH 0.26 uIU/ml (0.358-3.74) L 03/15/19 06:02 Free T4 0.85 ng/dl (0.76-1.46) 03/15/19 06:02 Current Medications Albuterol Sulfate (Ventolin 0.083% Nebulizer Soln -) 1 amp NEB RQID [facility] Last Admin: 03/16/19 11:23 Dose: 1 amp Clonazepam (Klonopin -) 0.5 mg PO HS [facility] Last Admin: 03/15/19 21:21 Dose: 0.5 mg Enalapril Maleate (Vasotec -) 10 mg PO DAILY [facility] Last Admin: 03/16/19 12:28 Dose: 10 mg Folic Acid (Folic Acid -) 1 mg PO DAILY [facility] Last Admin: 03/16/19 09:39 Dose: 1 mg Heparin Sodium (Porcine) (Heparin -) 5,000 unit SQ TID JEANE Last Admin: 03/16/19 06:05 Dose: 5,000 unit Sodium Chloride (Normal Saline -) 1,000 mls @ 100 mls/hr IV ASDIR [facility] Last Admin: 03/15/19 21:21 Dose: 100 mls/hr Insulin Aspart (Novolog Vial Sliding Scale -) 1 vial SQ TIDAC [facility]; Protocol Last Admin: 03/16/19 12:27 Dose: Not Given Multivitamins/Minerals/Vitamin C (Tab-A-Vit -) 1 tab PO DAILY [facility] Last Admin: 03/16/19 09:39 Dose: 1 tab Thiamine HCl (Vitamin B1 -) 100 mg PO DAILY [facility] Last Admin: 03/16/19 09:40 Dose: 100 mg Microbiology 03/15/19 00:45 Urine - Urine Clean Catch Urine Culture - Final Contaminated: Please Repeat HOSPITAL COURSE: Date of Admission:03/15/19 63 y/o F, pmh of DM, HLD, HTN, polysubstance abuse (sober x1yr until tonight), gastritis, anxiety disorder, and depression is BIBA for a witnessed LOC without head trauma is admitted for syncope. Pt was found to be positive for cocaine and alcohol. Likely head trauma was r/o w/ a negative head CT. Cardiac causes of syncope due to drug induced arrhythmia was also r/o w/ an EKG that normal. Utox was positive for alcohol intox, which could have likely contributed to the syncope as a result of volume depletion due to low BP, dry mucosa and skin, SHARRON and elevated lactate. Pt was given thiamine, folate and fluids which improved her condition. Pt was also found to have an elevated white count of 15.4 in the setting of no fever, or signs of infection, therefore could have been a reactive process or due to volume depletion. However, pt did have an elevated trop, which later on plateaued. She was advised to get a stress test and an echo done with her Bus Driver Supervisor Dr. Asad August, who she said she is following up with this week for the results of a cardiac test (she is unsure of the name of the test). She was discharged home. CT head negative CXR neg EKG- NSR Renal U/S normal, no hydro or acute pathology CT a/p- No acute process or pathology seen. Hepatomegaly w/ diffuse fatty infiltrate of the liver Date of Discharge: 03/16/19 Minutes to complete discharge: 35 Discharge Summary Problems reviewed: Yes Reason For Visit: SYNCOPE,ABDOMINAL PAIN Current Active Problems SHARRON (acute kidney injury) (Acute) Hypotension (Acute) Syncope (Acute) Volume depletion (Acute) Abdominal pain (Chronic) Condition: Improved - Instructions Diet, Activity, Other Instructions: You were admitted to the hospital for losing consciousness While you were in the hospital, we evaluated you with lab work, blood work, EKG , imaging including x rays of our chest and CAT scans of your abdomen and head. We found that your symptoms were most likely caused by dehydration. We treated you with medications and restored your fluids, which improved your symptoms. Please follow up with your Bus Driver Supervisor in 1 week, Dr. Asad Garsia- , within one week as you will need both an echocardiogram of your heart and a stress test Please follow up with your primary care physician in 1 week, Dr. Mark Hernandez. Please take all your medications as prescribed please refrain from alcohol and drug use drink plenty of fluids Return to the emergency room if you experience worsening of your symptoms, chest pain, abdominal pain, shortness of breath, nausea or vomiting. You need your thyroid hormons to be repeated in a couple weeks. please follow with your doctor for that Referrals: Asad August [Other] ( Bus Driver Supervisor) Mark Hernandez MD [Non Staff, Medical] - Disposition: HOME - Home Medications Comprehensive Discharge Medication List: Ambulatory Orders Omeprazole [Prilosec (RX)] 40 mg PO DAILY 09/30/13 Clonazepam [Klonopin] 0.5 mg PO HS 10/14/14 Enalapril Maleate [Vasotec -] 10 mg PO DAILY 10/14/14 Zolpidem Tartrate [Ambien] 5 mg PO HS 10/14/14 Albuterol 0.083% Nebulizer Yelitza [Ventolin 0.083% Nebulizer Soln -] 1 neb NEB Q6H #20 vial 08/16/18 Fenofibrate 150 mg PO DAILY 03/15/19 Glipizide Xl [Glucotrol Xl -] 10 mg PO DAILY 03/15/19 This patient is new to me today: Yes Date on this admission: 03/19/19 Emergency Visit: Yes ED Registration Date: 03/15/19 Care time: The patient presented to the Emergency Department on the above date and was hospitalized for further evaluation of their emergent condition. Critical Care patient: No - Discharge Referral Referred to [facility] No ATTENDING PHYSICIAN STATEMENT I saw and evaluated the patient. I reviewed the resident's note and discussed the case with the resident. I agree with the resident's findings and plan as documented. SUBJECTIVE: OBJECTIVE: ASSESSMENT AND PLAN:
== END 2019-03-16 14:00 | disposition home or self-care (01) ==
LOC: JER 22:04 → JERBED 03-15 01:32 → J4W 03-15 20:46
PROVIDERS: ADMIT Internal Medicine; ATTEND Internal Medicine
PROC: 3E033GC Introduction of Other Therapeutic Substance into Peripheral Vein, Percutaneous Approach (ICD-10-PCS; principal; 2019-03-15)
PROC: 3E033GC Introduction of Other Therapeutic Substance into Peripheral Vein, Percutaneous Approach (ICD-10-PCS; 2019-03-15)
PROC: 3E023GC Introduction of Other Therapeutic Substance into Muscle, Percutaneous Approach (ICD-10-PCS; 2019-03-15)
DX: R55 Syncope and collapse (principal); I95.9 Hypotension, unspecified; N17.9 Acute kidney failure, unspecified; E86.9 Volume depletion, unspecified; R10.9 Unspecified abdominal pain; E11.9 Type 2 diabetes mellitus without complications; Z79.84 Long term (current) use of oral hypoglycemic drugs; J45.909 Unspecified asthma, uncomplicated; K21.9 Gastro-esophageal reflux disease without esophagitis; K64.9 Unspecified hemorrhoids; K59.00 Constipation, unspecified; D72.829 Elevated white blood cell count, unspecified; F41.9 Anxiety disorder, unspecified; F32.9 Major depressive disorder, single episode, unspecified; F19.10 Other psychoactive substance abuse, uncomplicated; F10.10 Alcohol abuse, uncomplicated; F14.10 Cocaine abuse, uncomplicated; F12.10 Cannabis abuse, uncomplicated; M54.9 Dorsalgia, unspecified; G89.29 Other chronic pain; Z90.710 Acquired absence of both cervix and uterus; Z90.722 Acquired absence of ovaries, bilateral; Z88.8 Allergy status to other drugs, medicaments and biological substances
CPT/HCPCS: 36415; 70450-TC; 71045-TC-FY; 74176-TC; 76775-TC; 80048; 80053; 80307; 81003; 82436; 82550; 82565; 82962; 83605; 83690; 83735; 83930; 83935; 84100; 84133; 84300; 84439; 84443; 84484; 85025; 85027; 85610; 87086; 93005; 93010; 94640; 99285-25; G0378; J1644; J7030

== ENCOUNTER 2024-12-05 11:49 | Emergency (ER) | payer OTHER ==
[2024-12-05 11:59] VITALS: BMI 25.7
[2024-12-05] MEDS ORDERED: ACETAMINOPHEN INJECTION 100 ML ONE (13:52)
[2024-12-05 13:58] LABS: MCHC 32.6 g/dl (32.2-35.5); MEAN CELL VOLUME 88.6 fl (79.4-94.8); MEAN PLT VOLUME 10.5 fl (9.4-12.3); RDW 11.9 % (12.4-16.6)
[2024-12-05] MEDS: SODIUM CHLORIDE 0.9% 1000 ML INFUS.BAG IV ONE (14:02)
[2024-12-05] MEDS: ACETAMINOPHEN 1000 MG/100 ML BAG IVPB ONE (14:02)
[2024-12-05 14:08] LABS: GLUCOSE,RANDOM 127.0 mg/dL (74-106)
[2024-12-05 14:09] LABS: TOT PROT 6.9 g/dl (6.4-8.2)
[2024-12-05 14:10] LABS: CO2 29.0 mmol/L (21-32)
[2024-12-05 14:11] LABS: ALK PHOS 75.0 U/L (40-150)
[2024-12-05 14:14] LABS: CREATININE 0.81 mg/dL (0.55-1.3); SGOT/AST 20.0 U/L (5-34); SGPT/ALT 19.0 U/L (0-55)
[2024-12-05 14:34] LABS: HCV DIAGNOSTIC IN-HOUSE W/RFLX NON-REACTIVE (NONREACTIVE)
[2024-12-05 14:35] LABS: HIV INTERPRETATION NEGATIVE (NEGATIVE)
[2024-12-05] MEDS ORDERED: AMOX TR/POT CLAV 875MG/125MG TABLETS (FP) ONE (15:50)
[2024-12-05] MEDS: AMOX TR/POT CLAV 875MG/125MG TABLETS (FP) PO ONE (15:52)
[2024-12-05] MEDS ORDERED: TETRACAINE 0.5% OPHTH SOLN 2 ML BOTTLE ONE (16:14)
[2024-12-05] MEDS ORDERED: FLUORESCEIN NA 1 EA STRIP ONE (16:14)
[2024-12-05] MEDS: TETRACAINE 0.5% HCL 0.6ML DROPPER.BOTTLE OD ONE (16:24)
[2024-12-05 19:49] VITALS: BP 142/67; PULSE 68; RESP 18; TEMP 98.4
== END 2024-12-05 20:13 | disposition short-term general hospital (02) ==
LOC: JER 11:49
PROC: 3E033NZ Introduction of Analgesics, Hypnotics, Sedatives into Peripheral Vein, Percutaneous Approach (ICD-10-PCS; principal; 2024-12-05)
DX: H05.221 Edema of right orbit (principal); R22.0 Localized swelling, mass and lump, head; R42 Dizziness and giddiness; R09.81 Nasal congestion; R26.81 Unsteadiness on feet; J34.89 Other specified disorders of nose and nasal sinuses; R51.9 Headache, unspecified
CPT/HCPCS: 36415; 70450-TC; 80053; 85025; 86803; 87389; 87637-QW; 93005; 93010; 96374; 99285-25